=== PATIENT | male | born 1990 | race African-American/Black ===

== ENCOUNTER 2018-06-17 11:39 | Emergency (ER) | payer SELFPAY ==
[2018-06-17] MEDS: TETRACAINE 0.5% OPHTH SOLUTION 4ML BOTTLE. OD (12:35)
[2018-06-17] MEDS: FLUORESCEIN OPHTH TEST STRIP. OD (12:35)
== END 2018-06-17 13:05 | disposition home or self-care (01) ==
LOC: ER 13:05
DX: S05.01XA Injury of conjunctiva and corneal abrasion without foreign body, right eye, initial encounter (principal); F41.9 Anxiety disorder, unspecified; J45.909 Unspecified asthma, uncomplicated; K21.9 Gastro-esophageal reflux disease without esophagitis; X58.XXXA Exposure to other specified factors, initial encounter; Y93.89 Activity, other specified; Y92.89 Other specified places as the place of occurrence of the external cause; Y99.8 Other external cause status
CPT/HCPCS: 99283